=== PATIENT | male | born 1950 ===

== ENCOUNTER 2018-12-30 05:25 | Day surgery (SDC) | payer OTHER ==
[~2018-12-30 05:25] MED LIST: COZAAR25 MG PO; COZAAR50 MG PO; HYDROCHLOROTHIA25 MG PO
== END 2018-12-30 18:50 | disposition home or self-care (01) ==
LOC: CIR.AMB 05:25
DX: D12.9 Benign neoplasm of anus and anal canal (principal)

== ENCOUNTER → 2023-04-16 | Day surgery (SDC) | payer OTHER ==
[~2023-04-16] MED LIST changes: +ATORVASTATIN CA80 MG PO
== END | disposition home or self-care (01) ==
LOC: ADM 04-09 09:45 → CIR.AMB 06:24
PROVIDERS: ATTEND Colon & Rectal Surgery
DX: D12.9 Benign neoplasm of anus and anal canal (principal); K62.89 Other specified diseases of anus and rectum; K92.1 Melena; Z20.822 Contact with and (suspected) exposure to COVID-19; E11.9 Type 2 diabetes mellitus without complications; I10 Essential (primary) hypertension

== ENCOUNTER 2024-05-12 04:41 | Day surgery (SDC) | payer OTHER ==
[2024-05-12] MEDS ORDERED: METRONIDAZOLE/SODIUM CHLORIDE 500 MG/100 ML PIGGYBACK IV ONE (08:15)
[2024-05-12] MEDS ORDERED: HEMOSTATIC MATRIX 1 KIT KIT TOP ONE (08:15)
[2024-05-12] MEDS ORDERED: CEFTRIAXONE SODIUM 2,000 MG VIAL IV ONE (08:15)
[2024-05-12] MEDS ORDERED: LIDOCAINE HCL 1%/EPINEPHRINE 20ML VIAL IJ ONE (08:15)
[2024-05-12] MEDS ORDERED: DIBUCAINE 30 GM TUBE RECTAL ONE (08:15)
[2024-05-12] MEDS ORDERED: BUPIVACAINE HCL 30 ML VIAL IJ ONE (08:15)
[2024-05-12] MEDS ORDERED: POVIDONE-IODINE 118 ML BOTT TOP ONE (08:15)
== END 2024-05-12 12:50 | disposition home or self-care (01) ==
LOC: CIR.AMB 04:41
PROVIDERS: ATTEND Colon & Rectal Surgery
DX: D12.8 Benign neoplasm of rectum (principal)